=== PATIENT | male | born 2000 | race Caucasian/White ===

== ENCOUNTER 2024-11-04 18:45 | Emergency (ER) | payer BC, SELFPAY ==
[2024-11-04 18:46] VITALS: BMI 26.5
[2024-11-04 18:50] VITALS: BP 127/73
--- NOTE | 2024-11-04 21:57 | ED.GENMED ---
History of Present Illness
General
Chief Complaint: Musculo-Skeletal Complaint
Time Seen by Provider: 11/04/24 21:57
History of Present Illness
History of Present Illness:
TIME OF INITIAL ENCOUNTER:
HPI: Patient presents after a fall while skiing approximately 8 hours ago. Complains of left knee pain. The patient was skiing and landed off currently twisting the left knee. He denies any other injury including head injury. He only had
relatively mild pain at first but the pain dramatically worsened over the last few hours.
EXAM:
GENERAL: Well appearing but in mild to moderate distress related to pain at the left lower extremity
HEENT: Moist oral mucosa
NEUROLOGIC: Excellent strength all extremities, no obvious coordination deficits
PSYCHIATRIC: Appropriate mental status, normal insight and judgement
EXTREMITIES: There is a joint effusion at the left knee with no evidence of infection, there is questionable defect at the left quadriceps tendon but the patellar tendon appears to be intact. He is unable to keep the leg extended against gravity,
borderline positive drawer testing and positive Uma test
SKIN: No rash, no lesions
NUMBER AND COMPLEXITY OF PROBLEMS ADDRESSED AT THE ENCOUNTER
� Chronic conditions affecting care: No significant past medical history
� Acute Exacerbation and/or Progression of Chronic Illness: This is an acute problem
� Differential Diagnosis includes: ACL injury, meniscus injury, other internal derangement of the knee, quadriceps tendon rupture, highly doubt bony injury, joint effusion
AMOUNT AND/OR COMPLEXITY OF DATA TO BE REVIEWED AND ANALYZED
� I performed an independent evaluation of and my interpretation is:
EKG:
CT:
X-rays: X-ray shows a large left knee joint effusion with no evidence of fracture
Laboratory Studies:
Other:
� Review of other/old records: The patient was seen here in 2019 related to marijuana use
� Clinical information was obtained by an independent historian: I spoke with a friend at bedside
� Prescriptions/Medications Considered but not given:
� Further testing considered but not performed:
RISK OF COMPLICATIONS AND/OR MORBIDITY OR MORTALITY OF PATIENT MANAGEMENT
� Social determinants of health affecting care: Lives at home
� Discussion with other providers: None needed
� Escalation of care including admission/observation vs risk of discharge considered: The patient had does have rather significant pain with significant loss of function of the left knee�will give short course of narcotic
analgesia. Recommend NSAIDs and also give a dose of Toradol here. He is to follow-up with orthopedics.
ANY OTHER UPDATES:
Phy Exam
Physical Exam
Physical Exam:
See HPI
Course
Orders/Labs/Results
Orders:
Orders
11/04/24 18:52
CR Knee - Left 4 Or More View* Urgent
Comment:
Reason For Exam: injury, pain
11/04/24 22:07
Knee Immobilizer Left-Treatmen ONCE
Ketorolac [Toradol] 30 mg IM NOW STA
Oxycodone/Acetaminophen [Percocet 5/325] 1 tablet PO NOW STA
Vital Signs
Initial and Last Documented VS:
Initial Vital Signs
Temp Pulse Resp BP Pulse Ox
36.9 C 97 16 127/73 100
11/04/24 18:50 11/04/24 18:50 11/04/24 18:50 11/04/24 18:50 11/04/24 18:50
Last Documented Vital Signs
Temp Pulse Resp BP Pulse Ox
36.9 C 97 16 127/73 100
11/04/24 18:50 11/04/24 18:50 11/04/24 18:50 11/04/24 18:50 11/04/24 18:50
*Critical Care Note
Total Time (30-74mins, 75-104mins- exclusive of procedures): Not Applicable
ED Attending Note
-
Portions of this chart may have been created with voice recognition software.� Occasional wrong word or��sound alike� substitutions may have occurred due to the inherent limitations of voice recognition software.
Discharge Plan
Departure
Patient Disposition: Home (Routine Discharge)
Date of Disposition: 11/04/24
Time of Disposition: 22:08
Patient with high blood pressure during this ER visit?: Yes
Discharge Problem:
Internal derangement of left knee
Instructions: Knee Immobilizer (DC), Knee Pain (DC)
Prescriptions:
New
oxycodone-acetaminophen [Endocet] 5-325 mg tablet
1 - 2 tab PO Q8H PRN (Reason: Pain) Qty: 10 0RF
No Action
amoxicillin 500 MG capsule
500 mg PO TID Qty: 20 0RF
cephalexin 500 MG capsule
500 mg PO QID Qty: 40 0RF
amoxicillin-pot clavulanate 400 MG/5 ML suspension for reconstitution
800 mg PO BID Qty: 200 0RF
clindamycin HCl 300 MG capsule
300 mg PO QID Qty: 28 0RF
prednisone 20 MG tablet
40 mg PO DAILY Qty: 8 0RF
amoxicillin 500 MG capsule
500 mg PO TID Qty: 30 0RF
Referrals:
Bobby Candelaria MD [Active] - Follow up in 2-3 days
Activity Restrictions/Additional Instructions:
Please follow-up with orthopedics such as Dr. Candelaria. I recommend 3-4 [id number] ibuprofen (Motrin) every 8 hours with food for a few days. Return here if worse. For more severe pain, I did send a prescription for Percocet to your
pharmacy. However limit the use of this as it has high addiction potential.
Interventions
Interventions:
*Risk Screen - Suicide Last Done: 11/04/24 18:50
*General Assessment Last Done: 11/04/24 18:50
*ED COVID-19 Vaccine History Last Done: 11/04/24 18:50
Discharge Date and Time
Print Language: TAJIK
[2024-11-04] MEDS: PERCOCET 5/325 1 TABLET PO (22:15)
[2024-11-04] MEDS: TORADOL 30 MG IM (22:17)
[2024-11-04 23:29] VITALS: BP 133/70
== END 2024-11-04 23:31 | disposition home or self-care (01) ==
LOC: EMR 18:45
PROVIDERS: EMERGENCY PHYSICIAN Emergency Medicine
DX: M23.92 Unspecified internal derangement of left knee (principal); V00.321A Fall from snow-skis, initial encounter; Y93.23 Activity, snow (alpine) (downhill) skiing, snowboarding, sledding, tobogganing and snow tubing
CPT/HCPCS: 99283; 29505; 96372; 73564